=== PATIENT | male | born 1950 | race Two or more races ===

== ENCOUNTER 2024-01-10 08:01 | Emergency (ER) | payer OTHER ==
[~2024-01-10] VITALS: Ht 167.6 cm; Wt 59.0 kg
[2024-01-10] MEDS ORDERED: CARVEDILOL ER40 MG PO (08:27)
[2024-01-10] MEDS ORDERED: PLAVIX75 MG PO (08:28)
[2024-01-10] MEDS ORDERED: ZETIA10 MG (08:28)
[2024-01-10] MEDS ORDERED: ATORVASTATIN CA40 MG PO (08:28)
[2024-01-10] MEDS ORDERED: ENALAPRIL M1 MG/1 ML PO (08:28)
[2024-01-10] MEDS ORDERED: ADULT LOW DOSE81 M1 PO (08:29)
[2024-01-10] MEDS ORDERED: VITAMIN C1000 MG PO (08:29)
[2024-01-10] MEDS ORDERED: VITAMIN D310 MCG/1 M PO (08:29)
[2024-01-10 10:19] LABS: PH,URINE 5.5 (5.0-8.0); URINE APPEARANCE Clear; URINE BILIRRUBIN Negative (NEGATIVE); URINE BLOOD Moderate; URINE COLOR Yellow; URINE GLUCOSE Negative (NEGATIVE); URINE LEUKOCYTE Moderate; URINE NITRATE Negative; URINE UROBILINOGEN 0.2 E.U./dl
[2024-01-10 10:24] LABS: URINE BACTERIA 351.4 uL (0.0-1933); URINE EPITHELIAL CELLS 5.4 uL (0.0-38.8); URINE RBC 80.4 uL (0.0-20.8); URINE WBC 520.8 uL (0.0-23.2)
[2024-01-10 10:25] LABS: HEMATOCRIT 43.3 % (39.0-48.0); HEMOGLOBIN 14.6 g/dL (13-16.00); MEAN CELL VOLUME 91.5 fL (80.0-100.00); MEAN CORPUSCULAR HEMOGLOBIN 30.9 pg (27.00-32.0); MEAN CORPUSCULAR HGB CONC 33.7 g/dl (32.0-36.0); PLATELET COUNT 301 K/uL (150-450); RED BLOOD COUNT 4.73 M/uL (4.00-6.00); RED CELL DISTRIBUTION WIDTH 13.8 % (11.5-14.5)
[2024-01-10 10:28] LABS: URINE PROTEIN 100 (NEGATIVE)
[2024-01-10 11:04] LABS: ALBUMIN 3.7 gm/dL (3.4-5.0); BILIRUBIN TOTAL 0.54 mg/dL (0.3-1.2); CALCIUM 10.2 mg/dL (8.5-10.1); CREATININE SERUM 1.71 mg/dL (0.70-1.30); GFR 39.55; GLOBULINA 4.2 G/DL (2.4-3.5); POTASSIUM 4.25 mEq/L (3.5-5.1); TOTAL PROTEIN 7.9 gm/dL (6.4-8.2)
[2024-01-10] MEDS ORDERED: TAMSULOSIN HCL 0.4 MG CAP PO ONE (12:30)
[2024-01-10] MEDS ORDERED: CIPROFLOXACIN HCL 500 MG TABLET PO ONE (13:15)
== END 2024-01-10 14:26 | disposition home or self-care (01) ==
LOC: ER 08:02
PROVIDERS: Emergency Medicine
DX: N40.1 Benign prostatic hyperplasia with lower urinary tract symptoms (principal); N13.8 Other obstructive and reflux uropathy; I10 Essential (primary) hypertension; N41.0 Acute prostatitis